=== PATIENT | female | born 1980 | race Two or more races ===

== ENCOUNTER 2024-10-01 13:29 | Emergency (ER) | payer OTHER ==
[2024-10-01] MEDS ORDERED: KETOROLAC TROMETHAMINE 30 MG/1 ML VIAL ONE (15:19)
[2024-10-01] MEDS ORDERED: METHOCARBAMOL 500 MG TABLET ONE ×2 (15:19→21:19)
[2024-10-01] MEDS ORDERED: ACETAMINOPHEN 500 MG TABLET (FP) ONE (15:19)
[2024-10-01 15:24] LABS: PH,URINE 6.5 (5.0-8.0); URINE APPEARANCE CLEAR; URINE BILIRUBIN NEGATIVE (NEGATIVE); URINE COLOR YELLOW; URINE GLUCOSE (UA) NEGATIVE (NEGATIVE); URINE KETONE NEGATIVE (NEGATIVE); URINE LEUK ESTERASE NEGATIVE (NEGATIVE); URINE NITRITE NEGATIVE (NEGATIVE); URINE PROTEIN NEGATIVE (NEGATIVE); URINE UROBILINOGEN 0.2 mg/dL (0.2-1.0)
[2024-10-01] MEDS: ACETAMINOPHEN 500 MG TABLET (FP) PO ONE (15:25)
[2024-10-01] MEDS: METHOCARBAMOL 500 MG TABLET PO ONE ×2 (15:25→21:21)
[2024-10-01] MEDS: KETOROLAC TROMETHAMINE 30 MG/1 ML VIAL IM ONE (15:25)
[2024-10-01 15:35] LABS: HCG,QUALITATIVE URINE Negative
[2024-10-01 16:33] VITALS: RESP 18; TEMP 97; BMI 29.2
[2024-10-01] MEDS ORDERED: LORazepam 2 MG/ML SDV VIAL ONE (17:54)
[2024-10-01 20:42] VITALS: BP 125/53; PULSE 70
== END 2024-10-01 21:38 | disposition home or self-care (01) ==
LOC: JERFT 13:29 → JER 13:29 → JERFT 21:38
PROC: 3E0233Z Introduction of Anti-inflammatory into Muscle, Percutaneous Approach (ICD-10-PCS; principal; 2024-10-01)
PROC: 3E023GC Introduction of Other Therapeutic Substance into Muscle, Percutaneous Approach (ICD-10-PCS; 2024-10-01)
DX: M54.50 Low back pain, unspecified (principal); R03.1 Nonspecific low blood-pressure reading
CPT/HCPCS: 72100-TC-FY; 72131-TC; 72148-TC; 81003; 84703; 87086; 93005; 93010; 99285-25

== ENCOUNTER 2024-11-19 13:57 | Inpatient (IN) | payer OTHER ==
[2024-11-19 15:18] LABS: ABSOLUTE IMMATURE GRANULOCYTES 0.01 x10^3/uL (0.0-0.031); BASOPHILS # 0.06 x10^3/uL (0.01-0.08); EOSINOPHIL % 3.2 % (0.7-5.8); HEMATOCRIT 36.9 % (34.1-44.9); MCHC 32.5 g/dl (32.2-35.5); MEAN CELL VOLUME 89.6 fl (79.4-94.8); MEAN PLT VOLUME 9.3 fl (9.4-12.3); MONOCYTE # 0.48 x10^3/uL (0.24-0.86); MONOCYTE % 7.7 % (4.7-12.5); PLATELET COUNT 291 x10^3/uL (182-369); RDW 12.7 % (12.2-17.1)
[2024-11-19 15:24] LABS: INR 1.1 (0.83-1.09)
[2024-11-19 16:02] LABS: POTASSIUM 3.9 mmol/L (3.5-5.1)
[2024-11-19 16:04] LABS: CALCIUM 9.1 mg/dL (8.5-10.1)
[2024-11-19 16:05] LABS: ALBUMIN 3.2 g/dl (3.4-5.0); BLOOD UREA NITROGEN 13.2 mg/dL (7-18)
[2024-11-19 16:08] LABS: CREATININE 0.5 mg/dL (0.55-1.3)
[2024-11-19 16:10] LABS: BILIRUBIN,TOTAL 0.4 mg/dL (0.2-1); TOT PROT 7.1 g/dl (6.4-8.2)
[2024-11-19] MEDS ORDERED: ACETAMINOPHEN 325 MG TABLET (FP) ONE (17:48)
[2024-11-19] MEDS: ACETAMINOPHEN 325 MG TABLET (FP) PO ONE (18:39)
[2024-11-19 22:55] VITALS: BMI 31.1
[2024-11-20] MEDS ORDERED: EPINEPHrine 1:1000 P/F - 1 MG/ML AMP ONE (08:29)
[2024-11-20] MEDS ORDERED: GENTAMICIN SO4 80 MG/2 ML VIAL ONE (08:29)
[2024-11-20] MEDS ORDERED: BUPIVACAINE HCL/PF 0.5% (5MG/ML) 10 ML VIAL ONE (08:29)
[2024-11-20] MEDS ORDERED: THROMBIN (BOVINE) 20,000 UNIT VIAL TP ONE (08:29)
[2024-11-20] MEDS ORDERED: BUPIVACAINE LIPOSOME/PF (EXPAREL) 266 MG/20 ML VIAL ONE (08:29)
[2024-11-20 08:43] LABS: INR 1.1 (0.83-1.09); PROTHROMBIN TIME (PATIENT) 12.1 SEC (9.7-13.0)
[2024-11-20 08:46] LABS: ACTIVATED PTT 30.2 SECONDS (25.2-36.5)
[2024-11-20 08:58] LABS: CHLORIDE 107 mmol/L (98-107); POTASSIUM 4.1 mmol/L (3.5-5.1); SODIUM 138 mmol/L (136-145)
[2024-11-20 09:05] LABS: ANION GAP 6 mmol/L (4-13); CALCIUM 8.5 mg/dL (8.5-10.1); CO2 26 mmol/L (21-32); MAGNESIUM 1.8 mg/dL (1.8-2.4)
[2024-11-20 09:06] LABS: GLUCOSE,RANDOM 91 mg/dL (74-106); SGPT/ALT 15 U/L (13-61)
[2024-11-20 09:08] LABS: BILIRUBIN,TOTAL 0.7 mg/dL (0.2-1); TOT PROT 6.7 g/dl (6.4-8.2)
[2024-11-20 09:09] LABS: ALK PHOS 116 U/L (45-117); CREATININE 0.3 mg/dL (0.55-1.3); SGOT/AST 12 U/L (15-37)
[2024-11-20 09:11] LABS: ABSOLUTE IMMATURE GRANULOCYTES 0.01 x10^3/uL (0.0-0.031); BASOPHILS # 0.05 x10^3/uL (0.01-0.08); EOSINOPHIL % 2.4 % (0.7-5.8); EOSINOPHILS # 0.16 x10^3/uL (0.04-0.36); HEMATOCRIT 35.8 % (34.1-44.9); HEMOGLOBIN 11.6 g/dL (11.2-15.7); MCHC 32.4 g/dl (32.2-35.5); MEAN CELL VOLUME 87.7 fl (79.4-94.8); MONOCYTE # 0.54 x10^3/uL (0.24-0.86); PLATELET COUNT 296 x10^3/uL (182-369); RDW 12.5 % (12.2-17.1)
[2024-11-20] MEDS ORDERED: ROCURONIUM BROMIDE 50 MG/5 ML SYRINGE ONE (11:05)
[2024-11-20] MEDS ORDERED: SUCCINYLCHOLINE CHLORIDE 200 MG/10 ML SYRINGE ONE (11:05)
[2024-11-20] MEDS ORDERED: LIDOCAINE HCL/PF 2% SDV 5ML VIAL ONE (11:07)
[2024-11-20] MEDS ORDERED: MIDAZOLAM HCL 2 MG/2 ML SINGLE DOSE VIAL ONE (11:17)
[2024-11-20] MEDS ORDERED: PROPOFOL 100 ML ONE (11:18)
[2024-11-20] MEDS ORDERED: HEPARIN NA (PORCINE) 5,000 UNITS/ML 1ML VIAL SQ SCH (11:45)
[2024-11-20] MEDS: ceFAZolin SODIUM 1 GM VIAL IVPB ONE (12:05)
[2024-11-20] MEDS ORDERED: PROPOFOL 40 ML ONE (12:17)
[2024-11-20] MEDS ORDERED: KETAMINE HCL 200 MG/20 ML VIAL ONE (12:20)
[2024-11-20] MEDS ORDERED: HYDROmorphone HCl 2 MG/ML VIAL ONE (12:23)
[2024-11-20] MEDS ORDERED: SUGAMMADEX SODIUM 200 MG/2 ML VIAL ONE ×2 (12:59→13:13)
[2024-11-20] MEDS ORDERED: LABETALOL HCL 20 MG/4 ML VIAL ONE (13:13)
[2024-11-20] MEDS ORDERED: ONDANSETRON 4 MG/2 ML VIAL ONE (13:14)
[2024-11-20] MEDS: GELATIN, ABSORBABLE 100 EACH SPONGE TP ONE (13:21)
[2024-11-20] MEDS: THROMBIN (BOVINE) 5,000 UNIT VIAL TP ONE (13:21)
[2024-11-20] MEDS ORDERED: PROPOFOL 20 ML ONE ×5 (13:48→15:33)
[2024-11-20] MEDS ORDERED: VANCOMYCIN 1,000 MG VIAL (RESTRICTED TO ID ONLY) ONE (15:34)
[2024-11-20] MEDS ORDERED: ONDANSETRON 4 MG/2 ML VIAL IVPUSH PRN (16:55)
[2024-11-20] MEDS: LACTATED RINGERS SOLUTION 1,000 ML/1,000 ML INFUS.BAG IV SCH (17:18)
[2024-11-20] MEDS: DOCUSATE SODIUM 100 MG CAPSULE (FP) PO SCH (17:19)
[2024-11-20] MEDS: HEPARIN NA (PORCINE) 5,000 UNITS/ML 1ML VIAL SQ SCH (17:20)
[2024-11-20] MEDS: CEFAZOLIN 1 GM/D5W 1 GM/50 ML BAG IVPB SCH (19:25)
[2024-11-20] MEDS: morphine SULFATE 4 MG/ML VIAL IVPUSH PRN (20:14)
[2024-11-20] MEDS: LACTATED RINGERS SOLUTION 1,000 ML IV SCH (20:41)
[2024-11-20] MEDS: ONDANSETRON 4 MG/2 ML VIAL IVPUSH PRN (21:20)
[2024-11-20] MEDS: oxyCODONE HCL 5 MG TABLET PO PRN (22:43)
[2024-11-21 08:58] LABS: HEMATOCRIT 32.7 % (34.1-44.9); HEMOGLOBIN 10.7 g/dL (11.2-15.7); MCHC 32.7 g/dl (32.2-35.5); MEAN CELL VOLUME 88.4 fl (79.4-94.8); MEAN PLT VOLUME 10.1 fl (9.4-12.3); PLATELET COUNT 289 x10^3/uL (182-369); RDW 12.7 % (12.2-17.1)
[2024-11-21] MEDS: PANTOPRAZOLE SODIUM 40 MG VIAL IVPUSH SCH (09:17)
[2024-11-21] MEDS: FERROUS SO4 325 MG TABLET (FP) PO SCH (09:17)
[2024-11-21] MEDS: FOLIC ACID 1 MG TABLET (FP) PO SCH (09:17)
[2024-11-21 09:23] LABS: POTASSIUM 3.8 mmol/L (3.5-5.1)
[2024-11-21] MEDS ORDERED: PANTOPRAZOLE SODIUM 40 MG VIAL IVPUSH SCH (10:00)
[2024-11-21 10:15] LABS: CALCIUM 8.8 mg/dL (8.5-10.1)
[2024-11-21 10:16] LABS: BLOOD UREA NITROGEN 5.7 mg/dL (7-18)
[2024-11-21 10:19] LABS: CREATININE 0.2 mg/dL (0.55-1.3)
[2024-11-21] MEDS: HYDROmorphone HCL CARPU-JECT 2 MG/1 ML DISP.SYRIN IVPB PRN (18:08)
[2024-11-21] MEDS: KETOROLAC TROMETHAMINE 10 MG TABLET PO PRN (21:13)
[2024-11-22] MEDS ORDERED: DOCUSATE SODIUM 100 MG CAPSULE (FP) PO PRN (09:55)
[2024-11-22] MEDS ORDERED: ONDANSETRON *ODT* 4 MG TABLET SL PRN (09:58)
[2024-11-22] MEDS: PANTOPRAZOLE 40 MG TABLET PO SCH (10:27)
[2024-11-22] MEDS: POLYETHYLENE GLYCOL (HEALTHYLAX) 3350 17 GM PACKET PO SCH (10:27)
[2024-11-22] MEDS: oxyCODONE HCL 5 MG TABLET PO PRN (16:56)
[2024-11-22] MEDS: ACETAMINOPHEN 500 MG TABLET (FP) PO ONE (23:12)
[2024-11-23] MEDS: Methylnaltrexone Bromide 12 MG/0.6 ML KIT SQ SCH (10:25)
[2024-11-23] MEDS: diphenhydrAMINE HCL 25 MG CAPSULE (FP) PO PRN (23:59)
[2024-11-24 08:00] LABS: HEMATOCRIT 34.1 % (34.1-44.9); HEMOGLOBIN 11.1 g/dL (11.2-15.7); MCHC 32.6 g/dl (32.2-35.5); MEAN PLT VOLUME 9.9 fl (9.4-12.3); PLATELET COUNT 329 x10^3/uL (182-369); RDW 12.8 % (12.2-17.1)
[2024-11-24 08:26] LABS: CALCIUM 9.2 mg/dL (8.5-10.1); IRON SERUM 41 ug/dL (50-175)
[2024-11-24 08:27] LABS: ALBUMIN 2.9 g/dl (3.4-5.0); BLOOD UREA NITROGEN 8.6 mg/dL (7-18); TOTAL IRON BINDING CAPACITY 241 ug/dL (250-450)
[2024-11-24 08:30] LABS: CREATININE 0.3 mg/dL (0.55-1.3)
[2024-11-24 08:32] LABS: BILIRUBIN,TOTAL 0.7 mg/dL (0.2-1); TOT PROT 6.7 g/dl (6.4-8.2)
[2024-11-24] MEDS ORDERED: oxyCODONE HCL 5 MG TABLET PO PRN (18:13)
[2024-11-24] MEDS ORDERED: oxyCODONE HCL 5 MG TABLET ONE (18:41)
[2024-11-24] MEDS: oxyCODONE HCL 5 MG TABLET PO ONE (18:44)
[2024-11-25 10:46] VITALS: RESP 17
[2024-11-25 14:10] VITALS: BP 124/61; PULSE 84; TEMP 97.9
== END 2024-11-25 15:06 | disposition home or self-care (01) | DRG 850 ==
LOC: JER 13:57 → JERBED 15:38 → J6S 18:18 → J8W 11-20 20:02
PROVIDERS: ADMIT Internal Medicine; ATTEND Internal Medicine
PROC: 0SP00AZ Removal of Interbody Fusion Device from Lumbar Vertebral Joint, Open Approach (ICD-10-PCS; 2024-11-20)
PROC: 01NB0ZZ Release Lumbar Nerve, Open Approach (ICD-10-PCS; 2024-11-20)
PROC: 4A1004G Monitoring of Central Nervous Electrical Activity, Intraoperative, Open Approach (ICD-10-PCS; 2024-11-20)
PROC: 0SG307J Fusion of Lumbosacral Joint with Autologous Tissue Substitute, Posterior Approach, Anterior Column, Open Approach (ICD-10-PCS; principal; 2024-11-20 11:00)
DX: M96.0 Pseudarthrosis after fusion or arthrodesis (principal); M54.16 Radiculopathy, lumbar region; M54.9 Dorsalgia, unspecified; F17.210 Nicotine dependence, cigarettes, uncomplicated
CPT/HCPCS: 36415; 71046-TC-FY; 72220-TC-FY; 76000-TC-FY; 80048; 80053; 83540; 83550; 83735; 84100; 84702; 84703; 85025; 85027; 85610; 85730; 86850; 86900; 86901; 93005; 93010; 93971-TC; 94760; 97116-GP; 97161-GP; 99285-25; C1713; C1889; J0666